=== PATIENT | female | born 1930 | race Caucasian/White ===

== ENCOUNTER 2017-05-19 14:40 | Inpatient (IN) | payer MEDICARE, OTHER ==
[~2017-05-19] VITALS: Ht 165.1 cm; Wt 44.5 kg
--- NOTE | ~2017-05-19 | PROC NOTE ---
[place], [place] PROCEDURE NOTE NAME: [facility]NA [id number] UNIT #: [id number] ROOM: 317 DOCTOR: RENETTA BERGMAN BIRTHDATE: [birth year] DOS: MODIFIED BARIUM SWALLOW BACKGROUND HISTORY AND MEDICAL HISTORY: The patient was admitted to the ER with increased confusion. It reported a fall on 04/29/17, in which she required had a fractured nasal bone. She has a history of Alzheimer dementia, cognitive communication deficit, Parkinson's and GERD. Nursing reported that a family member said she was tolerating a regular diet, maintain nutrition and hydration orally prior to the following recent ER and admission to hospital. Nursing currently reports the patient is consuming less than 10% at bedside of food and liquids and that liquid is not swallowed and it runs out of her mouth unless it is administered via syringe. They report she cannot suck out of a straw or take liquid out of a cup without significant anterior loss. The patient was seen at bedside. She was assessed with pureed, textures and a modified barium swallow was ordered, though she was assessed with liquids under fluoroscopy. The patient's level of alertness is very limited, but because she had a timely oral preparation and swallow with pudding at bedside, the modified barium swallow was pursued. METHODS, MATERIALS AND PROCEDURE: The patient was seated upright with max assist in a courtney chair. She was viewed in the lateral plane. This study was done in conjunction with the radiologist. The patient could not administer any consistencies on her own and her ability to follow commands was very limited. The patient was administered honey-thick liquid via teaspoon x 2, nectar-thick liquid via teaspoon x 1 via cup x 1, pudding mixed with barium via teaspoon x 1. Thin liquids were not administered due to patient's level of lethargy and the fact that she was starting to fall forward in her courtney chair and there was concern for her safety. Also, nursing report indicates she is unable to take liquids other than syringe and the patient is not a candidate. She is not safe for syringe feeding based on her oral and pharyngeal phase skills of the swallow as well as limited level of alertness. ORAL PHASE: The patient demonstrated [id number] reduced bolus formation, ability to propel a bolus with all consistencies. The honey consistency was formed and propelled the safest and it slowly fell from the oral phase into the pharynx with limited bolus cohesion where it filled the vallecula and the swallow was triggered at the level of the vallecula. [place] fell more rapidly and passively into the pharynx and filled the piriform before the swallow was triggered with left control. Pudding consistency fell slowly, filled the vallecula where there swallow was triggered with moderately reduced oral control. There was no oral residue noted post any consistencies. Tongue metallic contact was very limited as well as tongue to posterior pharyngeal wall was limited. PHARYNGEAL PHASE: The patient demonstrated a 3-second delay in her swallow with honey-thick liquids in which they fill the vallecula before the swallow was triggered. She demonstrated a 1.5-2.0-second delay on putting thick textures, which were also triggered at the level of the vallecula. She demonstrated a moderate to severe delay and trigger of the pharyngeal swallow on honey-thick [place], [place] PROCEDURE NOTE NAME: DARINELDANIELITO M UNIT #: [id number] ROOM: [facility] DOCTOR: RENETTA BERGMAN BIRTHDATE: [birth year] liquids, which filled the piriform and was penetrated 1 out of 2 times. It was transient penetration, but it was moderate to severe amount on the nectar-thick liquid, most likely from filling the piriform sinuses and the swallow being triggered at the level of the piriform sinuses being filled up with nectar-thick liquid due to reduced control and the viscosity. Pudding texture or pureed with the swallow was triggered with mild delay at the level of the vallecula and no penetration or aspiration were noted on any consistencies other than the nectar. Thin liquid was not assessed as she is not functionally, able to intake at bedside and she was becoming lethargic and following forward and HEALTHCARE PROF was concerned for her safety in the courtney chair during this modified barium swallow. RECOMMENDATIONS AND IMPRESSION: Based on the above, the patient is a candidate for pureed and honey-thick liquid via spoon and cup. She is to be seated upright and remain upright 30 minutes all post-meals. She should be completely alert and awake for any feedings and her oral cavity should be checked post-meals to make sure there is no residue in her oral cavity. It is doubtful that the patient will be able to maintain hydration, especially on thickened liquids and/or nutrition as nursing reports, her intake has been less than 10%. Therefore, physician may wish to consider enteral means of nutrition and hydration to maximize her nutrition and hydration. The patient is definitely a candidate for speech therapy to follow her for pleasure feeds of honey-thick liquids and pureed textures. Her prognosis for improvement is poor based on her nursing report that she is end-stage Alzheimer dementia and that she is very limited in her ability to follow commands. Thank you for this referral. RENETTA BERGMAN CM:PROCNOTE:PROCEDURE NOTE [phone] RENETTA BERGMAN
--- NOTE | ~2017-05-19 | PR ---
[place], [place] PROGRESS NOTE NAME: [id number] UN[facility] #: [id number] ROOM: 317 DOCTOR: ABEL HERCULES BIRTHDATE: [birth year] DOS: 05/21/2017 SUMMARY OF VISIT: The patient was assessed in the conference room across the nurses' station. She was sleeping. I chose not to wake her because she did have episodes last night, yelling out, requiring medication. Overall, she has been okay for the nurses, the occasional yelling out, but ____ get her PRNs or redirect her. Mental status again limited. Yesterday, she was alert and oriented to person only and possibly place, but very confused. Does not look like we have got a UA, C and S back on this individual. We want to rule out urinary tract infection. I will follow up with the nurses regarding what the status of that. PLAN: I increased her Depakote yesterday because her valproic acid levels are subtherapeutic. I started her on Exelon. I do want to get a UA, C and S on this individual, so we can rule out organic as opposed to psychiatric. So, I will follow up with the nurses and see what status of the UA, C and S is and I am going to keep her meds where they are at right now. She is so tiny and I do not want to make any big adjustments just yet. RAMO HERCULES CNP CM:PNTRANS [id number] ABEL HERCULES 05/22/17 075 interface
--- NOTE | ~2017-05-19 | WRIGHTHP ---
[place], [place] PATIENT HISTORY AND PHYSICAL EXAM NAME: [id number] UNIT #: [id number] ROOM: 317 DOCTOR: ABEL HERCULES BIRTHDATE: [birth year] DOS: 05/20/2017 HISTORY OF PRESENT ILLNESS: This is an 86-year-old female who presented to the [facility] Emergency Room with increased confusion, combative behavior, with hands on care at a local senior living. Unable to answer questions in the Emergency Room. Report states that she fell on 04/29/2017 and required 3 sutures on her nose and she fractured her nasal bone. Sutures are still in place. PAST MEDICAL HISTORY: Includes agitation, Alzheimer's dementia, anemia, anxiety, atherosclerotic heart disease, coronary arrhythmias, cognitive-communication deficits, GERD, history of falls, hypothyroidism, major depression, Parkinson's disease and weakness. MENTAL STATUS EXAMINATION: The patient is alert and oriented to person, I think place, not time. She is a little bit confused, does not recall why she is here. Upon admission, they went ahead and did a CT of the head just to make sure she did not have any kind of bleed. The CT was negative. Imaging is not available at this point in time. She has had some decreased sleep and impulsive behaviors. We are going to get a UA, C and S on her, but we need to straight cath in order to do this. Her increase in agitation and confusion could be as simple as a urinary tract infection. No overt signs of auditory or visual hallucinations, delusions, paranoia, kyrie or hypomania. She has been pleasantly confused here, a little bit impulsive. DIAGNOSES: Dementia with behaviors, altered mental status and acute psychosis. PLAN: I found that she was vitamin D deficient and was started on vitamin D supplementation 50,000 international units q. week, we will start that tomorrow. I started her on Exelon 4.6 mg every day due to her dementia and she is not on any dementia medications. I went ahead and added Remeron 15 mg at bedtime to help with sleep, depression and stimulate her appetite. She is very small and she was on Depakote just at night. I went ahead and changed that to 3 times a day for now, but again I want to see what the UA, C and S says. This may be something as simple as a urinary tract infection and we treat and within a couple of days she is better and then I pull back on the Depakote. We will continue to try to engage in individual and stone milieu therapy with a plan to discharge once stable. [place], [place] PATIENT HISTORY AND PHYSICAL EXAM NAME: DANIELITO TENA UNIT #: [id number] ROOM: [facility] DOCTOR: ABEL HERCULES BIRTHDATE: [birth year] RAMO HERCULES CNP CM:HISPHYS:PATIENT HISTORY AND PHYSICAL EXAMINATION [id number] ABEL HERCULES 05/20/17 1132 interface
[2017-05-19] MEDS ORDERED: AMLODIPINE BESYL5 MG PO (14:49)
[2017-05-19] MEDS ORDERED: DEPAKOTE SPRIN125 MG PO (14:50)
[2017-05-19] MEDS ORDERED: ZOLOFT50 MG PO (14:52)
[2017-05-19] MEDS ORDERED: RISPERDAL1 M1 PO (14:53)
[2017-05-19] MEDS ORDERED: XANAX0.5 MG PO (14:53)
[2017-05-19] MEDS ORDERED: ACETAMINOPHEN500 M4 PO (14:56)
[2017-05-19] MEDS ORDERED: MILK OF MA400 MG/5 M PO (14:58)
[2017-05-19] MEDS ORDERED: TRAMADOL HCL50 MG PO (14:58)
[2017-05-19] MEDS ORDERED: PROSTATE HEALT1 EACH PO (15:16)
[2017-05-19 16:55] VITALS: BP 136/68
[2017-05-19 17:40] VITALS: BP 136/68
[2017-05-19 17:48] LABS: ALKALINE PHOSPHATASE 157 U/L (45-117); BUN 15 mg/dl (7-24); CHLORIDE 109 mmol/L (98-107); CREATININE 0.68 mg/dL (0.55-1.02); POTASSIUM 3.5 mmol/L (3.5-5.1); SGOT/AST 31 IU/L (3-35); SGPT/ALT 22 U/L (12-78); SODIUM 141 mmol/L (136-145); TOTAL PROTEIN 6.7 gm/dL (6.4-8.2)
[2017-05-19 17:50] LABS: VALPROIC ACID (DEPAKENE) 19.6 ug/ml (50-100)
[2017-05-19 17:55] LABS: THYROID STIM HORMONE (HS) 3.21 uIU/ml (0.358-4.75)
[2017-05-19 18:05] LABS: VITAMIN D, 25-HYDROXY 25.7 ng/mL (30-100)
[2017-05-19 18:06] LABS: BASO % 0.5 % (0.0-1.0); EOS # 0.2 10*3/uL (0.0-0.4); EOS % 2.4 % (1.0-4.0); HEMATOCRIT 35.6 % (37.0-47.0); HEMOGLOBIN 11.4 g/dl (12.0-16.0); LYMPH # 2.4 10*3/uL (1.3-4.4); LYMPH % 39.8 % (27.0-41.0); MEAN CORPUSCULAR HGB 30.7 pg (27.0-31.0); MEAN PLATELET VOLUME 10.3 fl (9.6-12.3); MONO # 0.6 10*3/uL (0.1-1.0); MONO % 9.6 % (3.0-9.0); NEUT # 2.9 10*3/uL (2.3-7.9); NEUT % 47.5 % (47.0-73.0); PLATELET COUNT AUTOMATED 184 10*3/uL (130-400); RED BLOOD COUNT 3.71 10*6/uL (4.10-5.10); RED CELL DISTRI WIDTH 14.5 % (0-14.5); WHITE BLOOD COUNT 6.1 10*3/uL (4.8-10.8)
[2017-05-19 20:00] VITALS: BP 150/80
[2017-05-19 20:35] VITALS: BP 150/80
[2017-05-20 08:01] LABS: CHOLESTEROL 108 mg/dL (<200); TRIGLYCERIDES 124 mg/dl (<150); VLDL CHOLESTEROL 25 mg/dL (6-40)
[2017-05-20 08:02] LABS: HDL CHOLESTEROL 41 mg/dl (40-60); LDL CHOLESTEROL 42 mg/dL (9-159)
[2017-05-20 19:48] VITALS: BP 145/90
[2017-05-21 07:42] VITALS: BP 155/64
[2017-05-21 11:15] LABS: BILIRUBIN NEGATIVE (NEGATIVE); BLOOD NEGATIVE (NEGATIVE); CLARITY CLEAR (CLEAR); COLOR YELLOW (YELLOW); GLUCOSE NEGATIVE (NEGATIVE); KETONE TRACE (NEGATIVE); LEUKO ESTERASE NEGATIVE (NEGATIVE); NITRITE NEGATIVE (NEGATIVE)
[2017-05-21 19:40] VITALS: BP 139/86
[2017-05-22 08:22] VITALS: BP 111/66
[2017-05-22 19:55] VITALS: BP 144/64
[2017-05-23 09:06] VITALS: BP 148/82
[2017-05-23 20:07] VITALS: BP 140/72
[2017-05-24 08:23] VITALS: BP 146/58
[2017-05-24 20:06] VITALS: BP 108/52
[2017-05-25 07:46] VITALS: BP 143/62
[2017-05-25 07:49] LABS: BASO % 0.3 % (0.0-1.0); EOS # 0.2 10*3/uL (0.0-0.4); EOS % 2.5 % (1.0-4.0); HEMATOCRIT 35.1 % (37.0-47.0); HEMOGLOBIN 11.7 g/dl (12.0-16.0); LYMPH # 2.5 10*3/uL (1.3-4.4); LYMPH % 34.7 % (27.0-41.0); MEAN CELL VOLUME 92.1 fl (81.0-99.0); MEAN CORPUSCULAR HGB 30.7 pg (27.0-31.0); MEAN CORPUSCULAR HGB CONC 33.3 g/dl (33.0-37.0); MEAN PLATELET VOLUME 9.8 fl (9.6-12.3); MONO # 0.7 10*3/uL (0.1-1.0); MONO % 9.3 % (3.0-9.0); NEUT # 3.8 10*3/uL (2.3-7.9); NEUT % 52.9 % (47.0-73.0); PLATELET COUNT AUTOMATED 196 10*3/uL (130-400); RED BLOOD COUNT 3.81 10*6/uL (4.10-5.10); RED CELL DISTRI WIDTH 14.5 % (0-14.5); WHITE BLOOD COUNT 7.1 10*3/uL (4.8-10.8)
[2017-05-25 08:22] LABS: ALBUMIN 2.8 gm/dl (3.1-4.5); ALKALINE PHOSPHATASE 115 U/L (45-117); BUN 13 mg/dl (7-24); CHLORIDE 110 mmol/L (98-107); CREATININE 0.63 mg/dL (0.55-1.02); POTASSIUM 3.2 mmol/L (3.5-5.1); SGOT/AST 29 IU/L (3-35); SGPT/ALT 16 U/L (12-78); SODIUM 144 mmol/L (136-145); TOTAL PROTEIN 6.7 gm/dL (6.4-8.2)
[2017-05-25 20:00] VITALS: BP 115/52
[2017-05-26 07:47] VITALS: BP 152/93
[2017-05-26] MEDS ORDERED: EXELON1 EAC1 T (13:34)
[2017-05-26] MEDS ORDERED: Depakote Sprin125 MG PO (13:35)
[2017-05-26] MEDS ORDERED: CYMBALTA30 MG PO (13:36)
[2017-05-26] MEDS ORDERED: VITAMIN D350000 UNIT PO (13:37)
[2017-05-26] MEDS ORDERED: VISTARIL50 MG PO (13:38)
[2017-05-26] MEDS ORDERED: VISTARIL50 MG IM (13:39)
[2017-05-26] MEDS ORDERED: GEODON20 M1 IM (13:41)
== END 2017-05-26 14:25 | disposition short-term general hospital (02) | DRG 57 ==
LOC: 3N 14:40
PROVIDERS: Nurse Practitioner Adult Health; Registered Nurse; ADMIT Psychiatry & Neurology Psychiatry
PROC: BD1BYZZ Fluoroscopy of Mouth/Oropharynx using Other Contrast (ICD-10-PCS; principal; 2017-05-26)
DX: G30.9 Alzheimer's disease, unspecified (principal); F02.81 Dementia in other diseases classified elsewhere, unspecified severity, with behavioral disturbance; G20 Parkinson's disease; F23 Brief psychotic disorder; I10 Essential (primary) hypertension; F32.9 Major depressive disorder, single episode, unspecified; F41.9 Anxiety disorder, unspecified; I25.10 Atherosclerotic heart disease of native coronary artery without angina pectoris; K21.9 Gastro-esophageal reflux disease without esophagitis; Z91.81 History of falling; E03.9 Hypothyroidism, unspecified; Z95.0 Presence of cardiac pacemaker; G89.29 Other chronic pain; S01.81XA Laceration without foreign body of other part of head, initial encounter; X58.XXXA Exposure to other specified factors, initial encounter; Y93.89 Activity, other specified; Y92.89 Other specified places as the place of occurrence of the external cause; Y99.8 Other external cause status; Z79.899 Other long term (current) drug therapy

== ENCOUNTER 2017-05-26 14:30 | Inpatient (IN) | payer MEDICARE, OTHER ==
[~2017-05-26] VITALS: Ht 163 cm; Wt 49.0 kg
--- NOTE | ~2017-05-26 | CON ---
[place], [place] REPORT OF CONSULTATION NAME: DANIELITO TENA UNIT #: [id number] ROOM: 409 DOCTOR: DEJA TORRESMURRAY BIRTHDATE: [birth year] DOS: 05/27/2017 HISTORY OF PRESENT ILLNESS: An 86-year-old patient who has presented from psychiatric unit back to us. She is back to us on acute care unit. The patient has been originally in a snf and being managed for depression and Alzheimer dementia. The patient apparently been unable to eat much on the psych floor and according to the nurses in psych that I interviewed, she is pocketing food in her mouth and forgets to swallow. The patient was transferred to the hospital site and we are asked for PEG tube placement. PAST MEDICAL HISTORY: Alzheimer dementia, atherosclerotic heart disease, agitation, cardiac pacemaker, cardiac dysrhythmia, muscle wasting, hypothyroidism, chronic age-related changes. PAST SURGICAL HISTORY: Cardiac catheterization. FAMILY HISTORY: Noncontributory. ALLERGIES: To no known medications. MEDICATIONS: Medication list has been reviewed and the patient on no anticoagulants intentionally. ALLERGIES: LEVAQUIN. FAMILY HISTORY: Noncontributory. REVIEW OF SYSTEMS: Cannot be obtained from her due to the cognitive incapability. PHYSICAL EXAMINATION: GENERAL: Frail patient. Age associated dementia, Alzheimer disabilities, bedridden. VITAL SIGNS: Stable. HEENT: Head normocephalic, nontraumatic. Mouth and buccal mucosa benign, edentulous. NECK: Supple. LUNGS: Vesicular breath sounds. No wheeze, no rhonchi. HEART: Normal sinus rhythm, no gallop, no murmur. ABDOMEN: Soft. No hepato-organomegaly. Bowel sounds present. No pulsatile mass. EXTREMITIES: Muscle wasting. No cyanosis, no pedal edema. NEUROLOGIC: Alert and disoriented. LABORATORY DATA: Reviewed. Records reviewed. Data reviewed. PLAN AND DISCUSSION: I have investigated her pattern of eating with nursing assistants and it was reported that she had 100% of her breakfast and she has 75% of her lunch and I placed 72 hours calorie count on her to see how she does, but I foresee that in future, she will be a candidate for PEG tube eventually [place], [place] REPORT OF CONSULTATION NAME: DANIELITO TENA UNIT #: [id number] ROOM: 409 DOCTOR: DEJA TORRES,MURRAY BIRTHDATE: [birth year] because it takes such enormous time to be able to feed her adequate calorie. LABORATORY DATA: Reviewed H of H of 9 and 30 with platelet count of 100 has been noticed. Comprehensive metabolic panel, GFR greater than 60, creatinine normal. Electrolytes: Potassium 3.4, phosphorus and magnesium within normal limits 3.2 and 2.0 respectively. Bilirubin 0.6, AST, ALT was 126/107 with alkaline phosphatase 254, all has been recognized. Her PT and PTT of 12.8 and 27.5 respectively as well as INR of 1.2 has been noticed. LABORATORY DATA: Labs and records reviewed. Case discussed with RN in-charge of her care. MURRAY SHORT MD CM:CONSTR:REPORT OF CONSULTATION 1610 05/28/17 0520 interface
--- NOTE | ~2017-05-26 | O ---
[place], [place] OPERATIVE NOTE NAME[id number] UNIT #: [id number] ROOM: 409 DOCTOR: THUY SHORT MDSCRANTONSUZETTE BIRTHDATE: [birth year] DOS: 05/31/2017 GASTROENDOSCOPIC REPORT. INDICATIONS: An 86-year-old patient who has presented with chief complaint of neurogenic dysphagia, difficulty to feed, assisted feeding has been leading to a long time of feeding as well as pocketing of the food in the oral cavity as well as not taking adequate calorie. PROCEDURE: Today's procedure part of investigation is EGD plus brush biopsy of esophageal moniliasis as well as PEG tube placement. PREMEDICATION: Versed and Diprivan. SCOPE: Olympus forward-viewing gastroscope Q10 video. REPORT: After putting the patient in supine position, scope was introduced; thereafter, under direct visualization, advanced through the length of the esophagus without difficulty. Esophageal moniliasis was identified. Gastric pouch was entered. Hiatal hernia seen. Antrum, duodenal bulb, second and third part within normal limits. At this stage, anterior abdominal wall aseptically was prepped with Betadine and best transillumination sign in mid gastric pouch was identified with Xylocaine 2 mL was injected into and then trocar was introduced in the same spot. Guidewire was advanced through the center of which orally extracted. At this stage, gastrostomy tube [place] 20 was smeared with Neosporin ointment and orally removed and recovered from the surface of the abdomen. Anchors placed, patency checked, patient was rescoped and PEG tube success was documented. The patient extubated, tolerated procedure well. IMPRESSION: Esophageal moniliasis, hiatal hernia, gastritis, status post PEG tube placement. PLAN AND DISCUSSION: We are going to start the patient on Osmolite 1.2 at 20 mL per hour today, starting at 5:00 p.m. and tomorrow we are going to increase her to 30 mL per hour from 9 a.m. and next day we are going to increase to 40 mL per hour. This is going to be complimented with H2O at 30 mL q. 4 hours and pleasure food would be permitted, provided psychiatric nursing assistant feeding. Awaiting brush for fungal study. If positive, we will treat with 1 week of Diflucan 100 mg every day. [place], [place] OPERATIVE NOTE NAME: DARINELDANIEILTO M UNIT #: [id number] ROOM: 409 DOCTOR: DEJA TORRES,MURRAY BIRTHDATE: [birth year] MRURAY SHORT MD CM:OPRECORD:OPERATIVE NOTE [id number] MURRAY SHORT MD 05/31/17 1451 interface
[~2017-05-26 14:30] MED LIST: ACETAMINOPHEN500 M4 PO; AMLODIPINE BESYL5 MG PO; CYMBALTA30 MG PO; DEPAKOTE SPRIN125 MG PO; Depakote Sprin125 MG PO; EXELON1 EAC1 T; GEODON20 M1 IM; MILK OF MA400 MG/5 M PO; PROSTATE HEALT1 EACH PO; RISPERDAL1 M1 PO; TRAMADOL HCL50 MG PO; VISTARIL50 MG IM; VISTARIL50 MG PO; VITAMIN D350000 UNIT PO; XANAX0.5 MG PO; ZOLOFT50 MG PO
[2017-05-26 16:00] VITALS: BP 107/84
[2017-05-26 16:04] VITALS: BP 120/72
[2017-05-26 17:01] LABS: ACT PARTIAL THROMBO TIME 27.5 SECONDS (20.8-31.5); INTERNATIONAL NORM RATIO 1.2 (2.0-3.5)
[2017-05-27] VITALS: BP 118/57
[2017-05-27 06:32] LABS: BASO % 0.3 % (0.0-1.0); EOS # 0.1 10*3/uL (0.0-0.4); EOS % 1.6 % (1.0-4.0); HEMATOCRIT 30.3 % (37.0-47.0); HEMOGLOBIN 9.9 g/dl (12.0-16.0); LYMPH # 0.8 10*3/uL (1.3-4.4); MEAN CELL VOLUME 93.8 fl (81.0-99.0); MEAN CORPUSCULAR HGB 30.7 pg (27.0-31.0); MEAN CORPUSCULAR HGB CONC 32.7 g/dl (33.0-37.0); MEAN PLATELET VOLUME 10.6 fl (9.6-12.3); MONO # 0.5 10*3/uL (0.1-1.0); MONO % 7.9 % (3.0-9.0); NEUT # 5.3 10*3/uL (2.3-7.9); NEUT % 77.3 % (47.0-73.0); RED BLOOD COUNT 3.23 10*6/uL (4.10-5.10); RED CELL DISTRI WIDTH 15.3 % (0-14.5); WHITE BLOOD COUNT 6.9 10*3/uL (4.8-10.8)
[2017-05-27 06:35] LABS: ALBUMIN 2.3 gm/dl (3.1-4.5); ALKALINE PHOSPHATASE 254 U/L (45-117); CHLORIDE 111 mmol/L (98-107); CREATININE 0.72 mg/dL (0.55-1.02); PHOSPHOROUS 3.2 mg/dL (2.5-4.9); POTASSIUM 3.4 mmol/L (3.5-5.1); SGOT/AST 126 IU/L (3-35); SGPT/ALT 107 U/L (12-78); SODIUM 144 mmol/L (136-145); TOTAL PROTEIN 5.9 gm/dL (6.4-8.2)
[2017-05-27 06:37] LABS: BUN 29 mg/dl (7-24); FREE T4 0.99 ng/dl (0.76-1.46)
[2017-05-27 06:50] LABS: PLATELET COUNT AUTOMATED 100 10*3/uL (130-400)
[2017-05-27 06:58] LABS: ACT PARTIAL THROMBO TIME 27.1 SECONDS (20.8-31.5); INTERNATIONAL NORM RATIO 1.1 (2.0-3.5)
[2017-05-27 08:00] VITALS: BP 126/73
[2017-05-27 16:00] VITALS: BP 148/82
[2017-05-28] VITALS: BP 129/52
[2017-05-28] MEDS ORDERED: SERTRALINE HYDR50 MG PO (05:20)
[2017-05-28] MEDS ORDERED: ELIQUIS2.5 M1 PO (05:21)
[2017-05-28] MEDS ORDERED: METOPROLOL25 MG PO (05:22)
[2017-05-28] MEDS ORDERED: BUSPAR5 MG PO (05:22)
[2017-05-28] MEDS ORDERED: ALPRAZOLAM0.25 M2 PO (05:22)
[2017-05-28] MEDS ORDERED: POTASSIUM CHLO20 ME4 PO (05:22)
[2017-05-28 06:18] LABS: BASO % 0.2 % (0.0-1.0); EOS # 0.1 10*3/uL (0.0-0.4); EOS % 0.8 % (1.0-4.0); HEMATOCRIT 31.7 % (37.0-47.0); HEMOGLOBIN 10.1 g/dl (12.0-16.0); LYMPH # 1.7 10*3/uL (1.3-4.4); LYMPH % 19.8 % (27.0-41.0); MEAN CELL VOLUME 94.3 fl (81.0-99.0); MEAN CORPUSCULAR HGB 30.1 pg (27.0-31.0); MEAN CORPUSCULAR HGB CONC 31.9 g/dl (33.0-37.0); MEAN PLATELET VOLUME 11.2 fl (9.6-12.3); MONO % 12.4 % (3.0-9.0); NEUT # 5.6 10*3/uL (2.3-7.9); NEUT % 66.2 % (47.0-73.0); PLATELET COUNT AUTOMATED 125 10*3/uL (130-400); RED BLOOD COUNT 3.36 10*6/uL (4.10-5.10); RED CELL DISTRI WIDTH 15.5 % (0-14.5); WHITE BLOOD COUNT 8.4 10*3/uL (4.8-10.8)
[2017-05-28 06:37] LABS: ALBUMIN 2.3 gm/dl (3.1-4.5); ALKALINE PHOSPHATASE 241 U/L (45-117); CHLORIDE 111 mmol/L (98-107); CREATININE 0.59 mg/dL (0.55-1.02); POTASSIUM 3.8 mmol/L (3.5-5.1); SGOT/AST 63 IU/L (3-35); SGPT/ALT 77 U/L (12-78); SODIUM 140 mmol/L (136-145); TOTAL PROTEIN 6.2 gm/dL (6.4-8.2)
[2017-05-28 06:46] LABS: BUN 19 mg/dl (7-24)
[2017-05-28 08:00] VITALS: BP 149/59
[2017-05-28 16:00] VITALS: BP 149/88
[2017-05-29] VITALS: BP 165/85
[2017-05-29 06:20] LABS: HEMATOCRIT 31.3 % (37.0-47.0); HEMOGLOBIN 10.3 g/dl (12.0-16.0); MEAN CELL VOLUME 93.7 fl (81.0-99.0); MEAN CORPUSCULAR HGB 30.8 pg (27.0-31.0); MEAN CORPUSCULAR HGB CONC 32.9 g/dl (33.0-37.0); MEAN PLATELET VOLUME 10.6 fl (9.6-12.3); PLATELET COUNT AUTOMATED 139 10*3/uL (130-400); RED BLOOD COUNT 3.34 10*6/uL (4.10-5.10); WHITE BLOOD COUNT 8.4 10*3/uL (4.8-10.8)
[2017-05-29 06:55] LABS: ALBUMIN 2.4 gm/dl (3.1-4.5); ALKALINE PHOSPHATASE 235 U/L (45-117); BUN 15 mg/dl (7-24); CHLORIDE 106 mmol/L (98-107); CREATININE 0.55 mg/dL (0.55-1.02); OVALOCYTES FEW; PLATELET SUFFICIENCY NORMAL (NORMAL); POTASSIUM 3.3 mmol/L (3.5-5.1); SGOT/AST 43 IU/L (3-35); SGPT/ALT 55 U/L (12-78); SODIUM 139 mmol/L (136-145); TOTAL CELLS COUNTED 100 #CELLS; TOTAL PROTEIN 6.3 gm/dL (6.4-8.2)
[2017-05-29 08:00] VITALS: BP 137/53
[2017-05-29 16:00] VITALS: BP 134/93
[2017-05-29 20:00] VITALS: BP 122/72
[2017-05-30] VITALS: BP 100/67
[2017-05-30 08:00] VITALS: BP 118/56
[2017-05-30 09:35] LABS: BUN 15 mg/dl (7-24); CHLORIDE 107 mmol/L (98-107); POTASSIUM 3.9 mmol/L (3.5-5.1); SODIUM 140 mmol/L (136-145)
[2017-05-30 12:00] VITALS: BP 137/56
[2017-05-30 16:00] VITALS: BP 147/86
[2017-05-30 20:00] VITALS: BP 171/89
[2017-05-31] VITALS (8 sets, daily range): BP systolic 119–153; BP diastolic 60–81
[2017-05-31 13:22] LABS: HEMATOCRIT 35.6 % (37.0-47.0); HEMOGLOBIN 11.7 g/dl (12.0-16.0); MEAN CELL VOLUME 92.5 fl (81.0-99.0); MEAN CORPUSCULAR HGB 30.4 pg (27.0-31.0); MEAN CORPUSCULAR HGB CONC 32.9 g/dl (33.0-37.0); MEAN PLATELET VOLUME 9.4 fl (9.6-12.3); PLATELET COUNT AUTOMATED 217 10*3/uL (130-400); RED BLOOD COUNT 3.85 10*6/uL (4.10-5.10); WHITE BLOOD COUNT 9.6 10*3/uL (4.8-10.8)
[2017-05-31 13:42] LABS: PLATELET SUFFICIENCY NORMAL (NORMAL); POLYCHROMASIA SLIGHT; TOTAL CELLS COUNTED 100 #CELLS
[2017-05-31 13:43] LABS: SCHISTOCYTES FEW
[2017-05-31 13:47] LABS: ALBUMIN 2.6 gm/dl (3.1-4.5); ALKALINE PHOSPHATASE 559 U/L (45-117); BUN 16 mg/dl (7-24); CHLORIDE 105 mmol/L (98-107); CREATININE 0.73 mg/dL (0.55-1.02); MAGNESIUM 1.8 mg/dL (1.5-2.1); POTASSIUM 3.6 mmol/L (3.5-5.1); SGOT/AST 55 IU/L (3-35); SGPT/ALT 60 U/L (12-78); SODIUM 140 mmol/L (136-145); TOTAL PROTEIN 7.1 gm/dL (6.4-8.2)
[2017-06-01 06:49] LABS: MEAN CELL VOLUME 93.8 fl (81.0-99.0); MEAN CORPUSCULAR HGB 31.3 pg (27.0-31.0); MEAN CORPUSCULAR HGB CONC 33.3 g/dl (33.0-37.0); MEAN PLATELET VOLUME 10.9 fl (9.6-12.3); PLATELET COUNT AUTOMATED 233 10*3/uL (130-400); RED BLOOD COUNT 3.52 10*6/uL (4.10-5.10); RED CELL DISTRI WIDTH 15.2 % (0-14.5); WHITE BLOOD COUNT 11.5 10*3/uL (4.8-10.8)
[2017-06-01 06:57] LABS: BUN 17 mg/dl (7-24); CHLORIDE 107 mmol/L (98-107); CREATININE 0.73 mg/dL (0.55-1.02); PHOSPHOROUS 3.1 mg/dL (2.5-4.9); POTASSIUM 3.8 mmol/L (3.5-5.1); SODIUM 140 mmol/L (136-145)
[2017-06-01 07:29] LABS: TOTAL CELLS COUNTED 100 #CELLS
[2017-06-01 07:30] LABS: PLATELET SUFFICIENCY NORMAL (NORMAL); POLYCHROMASIA SLIGHT
[2017-06-01 08:00] VITALS: BP 157/82
[2017-06-01 16:00] VITALS: BP 132/61
[2017-06-01 20:00] VITALS: BP 176/82
[2017-06-02] VITALS: BP 160/62
[2017-06-02 06:16] LABS: BUN 13 mg/dl (7-24); CHLORIDE 108 mmol/L (98-107); PHOSPHOROUS 3.6 mg/dL (2.5-4.9); POTASSIUM 3.7 mmol/L (3.5-5.1); SODIUM 140 mmol/L (136-145)
[2017-06-02 07:28] LABS: BASO % 0.3 % (0.0-1.0); EOS # 0.1 10*3/uL (0.0-0.4); EOS % 1.3 % (1.0-4.0); HEMATOCRIT 29.2 % (37.0-47.0); HEMOGLOBIN 9.8 g/dl (12.0-16.0); LYMPH # 2.3 10*3/uL (1.3-4.4); LYMPH % 21.5 % (27.0-41.0); MEAN CELL VOLUME 92.7 fl (81.0-99.0); MEAN CORPUSCULAR HGB 31.1 pg (27.0-31.0); MEAN CORPUSCULAR HGB CONC 33.6 g/dl (33.0-37.0); MEAN PLATELET VOLUME 11.1 fl (9.6-12.3); MONO # 1.3 10*3/uL (0.1-1.0); MONO % 11.9 % (3.0-9.0); NEUT # 6.8 10*3/uL (2.3-7.9); NEUT % 64.1 % (47.0-73.0); PLATELET COUNT AUTOMATED 193 10*3/uL (130-400); RED BLOOD COUNT 3.15 10*6/uL (4.10-5.10); RED CELL DISTRI WIDTH 15.2 % (0-14.5); WHITE BLOOD COUNT 10.6 10*3/uL (4.8-10.8)
[2017-06-02 08:00] VITALS: BP 121/71
[2017-06-02] MEDS ORDERED: ALPRAZOLAM0.25 M2 PO (13:15)
[2017-06-02] MEDS ORDERED: VISTARIL50 MG PO (13:15)
[2017-06-02] MEDS ORDERED: LORAZEPAM0.5 MG PO (13:15)
[2017-06-02] MEDS ORDERED: TRAMADOL HCL50 MG PO ×2 (13:15)
== END 2017-06-02 13:15 | disposition other institution (70) | DRG 640 ==
LOC: 4E 14:30
PROVIDERS: Family Medicine; Internal Medicine; Registered Nurse; ADMIT Internal Medicine
PROC: 0DH63UZ Insertion of Feeding Device into Stomach, Percutaneous Approach (ICD-10-PCS; principal; 2017-05-31)
PROC: 0DB58ZX Excision of Esophagus, Via Natural or Artificial Opening Endoscopic, Diagnostic (ICD-10-PCS; principal; 2017-05-31)
DX: E86.0 Dehydration (principal); E43 Unspecified severe protein-calorie malnutrition; B37.81 Candidal esophagitis; G20 Parkinson's disease; R13.19 Other dysphagia; E87.8 Other disorders of electrolyte and fluid balance, not elsewhere classified; G30.9 Alzheimer's disease, unspecified; F02.81 Dementia in other diseases classified elsewhere, unspecified severity, with behavioral disturbance; E83.51 Hypocalcemia; F23 Brief psychotic disorder; K44.9 Diaphragmatic hernia without obstruction or gangrene; R74.0 Nonspecific elevation of levels of transaminase and lactic acid dehydrogenase [LDH]; I10 Essential (primary) hypertension; G89.29 Other chronic pain; E87.6 Hypokalemia; F41.9 Anxiety disorder, unspecified; I25.10 Atherosclerotic heart disease of native coronary artery without angina pectoris; K21.9 Gastro-esophageal reflux disease without esophagitis; E03.9 Hypothyroidism, unspecified; F32.9 Major depressive disorder, single episode, unspecified; K29.70 Gastritis, unspecified, without bleeding; Z91.81 History of falling; Z95.0 Presence of cardiac pacemaker; Z88.8 Allergy status to other drugs, medicaments and biological substances; Z79.899 Other long term (current) drug therapy